=== PATIENT | male | born 1950 | race Caucasian/White ===

== ENCOUNTER 2016-07-23 18:54 | Emergency (ER) | payer OTHER ==
[~2016-07-23] VITALS: Ht 175.3 cm; Wt 89.9 kg
[~2016-07-23 18:54] MED LIST: CITALOPRAM HBR10 MG PO; FLAGYL500 MG PO; LEVOFLOXACIN500 MG PO; LOSARTAN-HCTZ1 EAC2 PO; NORVASC5 MG PO; SYMBICORT60 INHALAT IH
[2016-07-23 20:22] LABS: HEMATOCRIT 47.4 % (38.0-50.0); MCH 28.9 PG (29.0-34.0); MCHC 34.8 G/DL (30.0-36.0); MCV 83.2 FL (86-99); MEAN PLAT.VOLUME 8.7 uM^3 (9.0-12.4); PLATELET COUNT 269 K/uL (156-360); RBC DIS.WIDTH-CV 11.8 % (11.8-14.6); RBC DIS.WIDTH-SD 35.4 % (39-53); WHITE BLOOD COUNT 12.4 K/uL (4.1-10.2)
[2016-07-23 20:31] LABS: CHLORIDE 103 mEq/L (99-109); POTASSIUM 4.2 mEq/L (3.7-5.4); SODIUM 138 mEq/L (136-147)
[2016-07-23 20:33] LABS: GLUCOSE 103 mg/dL (70-99)
[2016-07-23 20:38] LABS: ANION GAP 11 MEQ/L (2-14); GFR ESTIMATE (CALCULATED) > 59 mL/min/; UREA NITROGEN (BUN) 10 mg/dL (9-23)
[2016-07-23 21:06] LABS: TROP-I INTERPRETATION NEGATIVE; TROPONIN-I < 0.01 ng/mL (0.0-0.30)
[2016-07-23 22:26] LABS: TOTAL BILIRUBIN 0.7 mg/dL (0.0-1.0)
[2016-07-23 22:27] LABS: ALKALINE PHOSPHATASE 53 IU/L (3-129)
[2016-07-23 22:30] LABS: DIRECT BILIRUBIN 0.2 mg/dL (0.0-0.3)
[2016-07-23 22:31] LABS: LIPASE 16 U/L (1.0-51.0)
[2016-07-23 22:38] VITALS: BP 127/87
== END 2016-07-23 22:46 | disposition home or self-care (01) ==
LOC: EME 18:54
DX: J02.9 Acute pharyngitis, unspecified (principal); R53.83 Other fatigue; R11.0 Nausea; I10 Essential (primary) hypertension; Z87.891 Personal history of nicotine dependence
CPT/HCPCS: 71020; 80048; 80076; 83690; 84484; 85027; 87651 90; 93005; 99281; 99283; J1885; J7030